=== PATIENT | female | born 1985 | race Two or more races ===

== ENCOUNTER 2024-12-21 18:51 | Emergency (ER) | payer MEDICAID ==
[~2024-12-21] VITALS: Ht 177.8 cm; Wt 74.8 kg
[2024-12-21 19:41] LABS: PLATELET COUNT (AUTO) 393 K/uL (179-408); RED BLOOD CELL COUNT(AUTO) 4.49 MIL/uL (3.63-4.92); RED CELL DISTRIBUTION WIDTH 16.1 % (12.3-17.7); WHITE BLOOD COUNT (AUTO) 14.5 K/uL (3.8-11.8)
[2024-12-21 19:51] LABS: ETHANOL < 3 MG/DL (0-10)
[2024-12-21 19:56] LABS: ASPARTATE AMINOTRANSFERASE < 5 U/L (15-37); CREATININE 0.7 mg/dL (0.6-1.3); SODIUM SERUM 142 mmol/L (136-145); TOTAL PROTEIN, SERUM 7.1 g/dL (6.4-8.2); UREA NITROGEN, BLOOD 22 mg/dL (7-18)
[2024-12-21 20:04] LABS: NT-PRO BNP 55 pg/mL (0-125)
[2024-12-21 20:28] LABS: *BILIRUBIN,URIN NEGATIVE (NEGATIVE); *CLARITY,URINE CLEAR (CLEAR); *COLOR,URINE LIGHT YELLOW (YELLOW); *KETONES,URINE NEGATIVE (NEGATIVE); *PROTEIN,URINE NEGATIVE (NEGATIVE); *UROBILINOGEN,URINE 0.2 E.U./dl (NORMAL); LEUKOCYTE ESTERASE ,URINE NEGATIVE (NEGATIVE); NITRITE, URINE NEGATIVE (NEGATIVE); UGLUCOSE NEGATIVE (NEGATIVE)
[2024-12-21 20:30] LABS: *BLOOD, URINE TRACE (NEGATIVE)
[2024-12-21 20:31] LABS: *URINE HCG, QUAL NEGATIVE (NEGATIVE)
[2024-12-21 20:36] LABS: SQUAMOUS EPITHELIAL CELL,UR FEW /HPF (NONE SEEN)
[2024-12-21 20:38] LABS: *AMPHETAMINE, URINE NEGATIVE (NEGATIVE); *BARBITURATE, URINE POSITIVE (NEGATIVE); *BENZODIAZEPINE, URINE NEGATIVE (NEGATIVE); *CANNABINOID, URINE NEGATIVE (NEGATIVE); *COCCAINE, URINE NEGATIVE (NEGATIVE); *OPIATE, URINE NEGATIVE (NEGATIVE); *PHENCYCLIDINE SCREEN,URINE NEGATIVE (NEGATIVE); FENTANYL, URINE NEGATIVE (NEGATIVE)
[2024-12-21] MEDS ORDERED: BUTA-262 PO (23:30)
[2024-12-21] MEDS ORDERED: DIVA500T54 PO (23:30)
[2024-12-21] MEDS ORDERED: ASPI81TA31 PO (23:30)
[2024-12-21] MEDS ORDERED: ONDA4TAB11 PO (23:30)
[2024-12-21] MEDS ORDERED: ACET250T3 PO (23:30)
[2024-12-21] MEDS ORDERED: CLOP75TA33 PO (23:30)
[2024-12-22] MEDS ORDERED: METOCLOPRAMIDE HCL 10 MG/2 ML VIAL ONE (07:57)
[2024-12-22] MEDS ORDERED: POTASSIUM CHLORIDE 20 MEQ TAB.PRT.SR ONE (07:57)
[2024-12-22 08:05] VITALS: BP 117/77; O2SAT 99
[2024-12-22 08:09] LABS: CREATININE 0.7 mg/dL (0.6-1.3); SODIUM SERUM 142.0 mmol/L (136-145); UREA NITROGEN, BLOOD 20.0 mg/dL (7-18)
[2024-12-22] MEDS: POTASSIUM CHLORIDE 20 MEQ TAB.PRT.SR PO ONE (08:09)
[2024-12-22] MEDS: METOCLOPRAMIDE HCL 10 MG/2 ML VIAL IV ONE (08:09)
[2024-12-22] MEDS ORDERED: CLOPIDOGREL 75 MG TABLET ONE (08:22)
[2024-12-22] MEDS ORDERED: ASPIRIN 81 MG TAB.CHEW ONE (08:22)
[2024-12-22] MEDS: CLOPIDOGREL 75 MG TABLET PO ONE (08:26)
[2024-12-22] MEDS: ASPIRIN 81 MG TAB.CHEW PO ONE (08:26)
== END 2024-12-22 09:25 | disposition short-term general hospital (02) ==
LOC: ER 18:56
DX: G93.2 Benign intracranial hypertension (principal); G08 Intracranial and intraspinal phlebitis and thrombophlebitis; Z79.02 Long term (current) use of antithrombotics/antiplatelets; Z79.82 Long term (current) use of aspirin; Z79.899 Other long term (current) drug therapy; Z86.73 Personal history of transient ischemic attack (TIA), and cerebral infarction without residual deficits
CPT/HCPCS: 80053; 81001; 84703; 83880; 85025; 84484; 36415 ×2; 71045; 70450; 93005; 80320; 80307; 80048; 83735; 99291; 96374; J2765; A4606; A4663; G0480